=== PATIENT | male | born 1965 | race Caucasian/White ===

== ENCOUNTER → 2022-03-23 | Outpatient (CLI) | payer BC ==
[2022-03-23 11:14] LABS: HCT 41.5 % (39.6-50.0); HGB 13.7 g/dL (13.0-17.0); MCH 29.7 pg (27.0-32.0); MCV 89.8 fL (80.0-97.0); Mean Platelet Volume 9.8 fL (9.5-12.2); NRBC Per 100 WBC 0 /100 WBCS (0.0-0.0); Platelet Count 210 X 10*3/uL (140-440); RBC 4.62 X 10*6/uL (4.40-5.60); RDW 12.8 % (11.5-14.5)
[2022-03-23 12:02] LABS: ALT 15 U/L (10-49); AST 22 U/L (14-35); African American GFR (CKD) 77.9 (60.0-200.0); Albumin 4.1 g/dL (3.8-4.9); Albumin/Globulin Ratio 1.46 (1.60-3.17); Alkaline Phosphatase 72 U/L (41-126); BUN/Creat Ratio 17.33 Ratio (12.00-20.00); Blood Urea Nitrogen 20.8 mg/dL (9.0-27.0); Carbon Dioxide 24.4 mmol/L (20.0-27.5); Chloride 106 mmol/L (96-109); Chol/HDL Ratio 6.03 Ratio; Globulin 2.8 g/dL (1.6-3.3); Glucose 101 mg/dL (70-110); LDL Cholesterol,Calculated 168.6 mg/dL (0.0-131.0); Non-African American GFR(CKD) 67.2 (60.0-200.0); Potassium 4.6 mmol/L (3.5-5.5); Sodium 140 mmol/L (135-145); Total Protein 6.9 g/dL (6.2-8.2)
== END | disposition home or self-care (01) ==
LOC: LABWHC1 08:24
PROVIDERS: ATTEND Physician Assistant Medical
DX: Z12.5 Encounter for screening for malignant neoplasm of prostate (principal); F32.A Depression, unspecified; R73.01 Impaired fasting glucose; R53.83 Other fatigue
CPT/HCPCS: 36415; 80053; 80061; 83036; 84153; 84443; 85027

== ENCOUNTER 2022-06-12 09:28 | Emergency (ER) | payer BC, OTHER ==
[2022-06-12 09:36] VITALS: BP 157/94; PULSE 82; RESP 16; TEMP 98.4
--- NOTE | 2022-06-12 10:34 | ED ---
Fall HPI - General Chief Complaint: Fall Stated Complaint: [facility],Fell of ladder Time Seen by Provider: 06/12/22 09:58 Source: patient, family, RN notes reviewed Mode of arrival: ambulatory - History of Present Illness Initial Comments: This is a 57-year-old male who presents to the emergency department for a fall. Patient states that he was at work and he was coming off of a ladder, when he missed the last step and proceeded to fall. States that he scraped his left arm and when he fell, he landed on his lower back and right side. Currently complaining of pain to the lower back and right groin area. He took ibuprofen with mild relief, and states that he is able to ambulate. He is required to have evaluation per [facility] standards. He also wants to ensure that he did not hernandez stain any fractures. Denies hitting his head or any loss of consciousness. Denies any fevers, chills, sore throat, cough, dyspnea, chest pain, palpitations, abdominal pain, nausea, vomiting, diarrhea, or headaches. MD Complaint: fall Fall From: from height (distance) (8 feet) Place Fall Occurred: work Loss of Consciousness: none Symptoms Prior to Fall: none - Related Data Allergies Allergy/AdvReac Type Severity Reaction Status Date / Time No Known Allergies Allergy Verified 06/12/22 09:36 Review of Systems ROS Statement: Those systems with pertinent positive or pertinent negative responses have been documented in the HPI. ROS Other: All systems not noted in ROS Statement are negative. Past Medical History Past Medical History: No Reported History History of Any Multi-Drug Resistant Organisms: None Reported Past Surgical History: No Surgical Hx Reported Past Psychological History: Depression Smoking Status: Never smoker Past Alcohol Use History: None Reported Past Drug Use History: None Reported General Exam Limitations: no limitations General appearance: alert, in no apparent distress Head exam: Present: atraumatic, normocephalic, normal inspection Respiratory exam: Present: normal lung sounds bilaterally. Absent: respiratory distress, wheezes, rales, rhonchi, stridor Cardiovascular Exam: Present: regular rate, normal rhythm, normal heart sounds. Absent: systolic murmur, diastolic murmur, rubs, gallop, clicks Back exam: Present: normal inspection. Absent: tenderness, paraspinal tenderness, vertebral tenderness Neurological exam: Present: alert, oriented X3, CN II-XII intact Psychiatric exam: Present: normal affect, normal mood Skin exam: Present: warm, dry, normal color, abrasion (Over the left elbow and dorsal aspect of the left forearm. No active bleeding. ). Absent: rash Course Vital Signs 06/12/22 09:33 Temperature 98.4 F Pulse Rate 82 Respiratory 16 Rate Blood Pressure 157/94 O2 Sat by Pulse 98 Oximetry Medical Decision Making - Medical Decision Making This is a 57-year-old male who presents to the emergency department for lower back pain and right hip pain after a fall. X-rays of the right hip, lower back, and left arm were obtained. X-ray of the right hip could not rule out an acute avulsion injury, a computed tomography scan of the hip was subsequently obtained. This revealed that the avulsion injury was most likely related to an old injury. X-ray of the lumbar spine was also unable to rule out an acute L3 fracture. Computed tomography scan of the lumbar spine was also subsequently obtained. This revealed an L3 compression fracture. Patient given orthopedic follow-up with Dr. Dorman. Advised to take ibuprofen and Tylenol as needed for pain relief. Also advised he avoid excess bending or lifting or long periods of sitting. 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 Return precautions reviewed in depth, the patient is instructed to return to the emergency department with any new, worsening, or concerning symptoms. Patient verbalized understanding. This case was discussed in detail with the attending ED physician. Presentation, findings, and treatment plan discussed in detail as well. - Radiology Data Radiology results: report reviewed, image reviewed Disposition Clinical Impression: Compression fracture of L3 vertebra Disposition: HOME SELF-CARE Instructions (If sedation given, give patient instructions): Vertebral Compression Fracture (ED) Additional Instructions: Return to the emergency department with any new, worsening, or concerning symptoms, especially if you develop loss of bowel/bladder control or numbness in pelvis or extremities. Contact Dr. Dorman, orthopedics, for a follow-up appointment. Alternate with Tylenol and ibuprofen as needed for pain relief. You may also apply lidocaine patches if you find them helpful. Is patient prescribed a controlled substance at d/c from ED?: No Referrals: Sera Kendall DO [Primary Care Provider] - 1-2 days Sean Dorman DO [Doctor of Osteopathic Medicine] - 1-2 days
--- NOTE | 2022-06-12 11:06 | XR ---
EXAMINATION TYPE: XR lumbar spine 3 views DATE OF EXAM: 06/12/2022 Comparison: None Clinical History: 57-year-old male low back Pain after fall Findings: 5 lumbar type vertebral bodies. Facet arthropathy mid to lower lumbar spine. Mild multilevel degenera tive disc disease. There is grade 1 retrolisthesis L2-L3 and L3-L4. There is some cortical irregulari ty of the superior endplate and anterior vertebral cortex of L3. Unable to exclude subtle vertebral b katie fracture here. Impression: 1. Correlate for point tenderness at the L3 level. Unable to exclude a subtle vertebral body fracture of the superior endplate and anterior cortex. 2. Mild multilevel degenerative disc disease. Facet arthropathy and degenerative trace grade 1 retrol isthesis L2-L3 and L3-L4.
--- NOTE | 2022-06-12 11:07 | XR ---
EXAMINATION TYPE: XR femur RT DATE OF EXAM: 06/12/2022 COMPARISON: None HISTORY: Pain after fall from ladder TECHNIQUE: 2 view right femur FINDINGS: Femoral head articulates with the acetabulum. There is a tiny ossification along the plastics and composites inspector ior superior acetabulum. Tiny avulsion is not entirely excluded. No additional areas suspicious for fracture are evident. Knee joint space is mild degenerative change . Follow-up can be performed as clinically indicated. IMPRESSION: 1. Degenerative spurring versus tiny avulsion superior acetabulum. 2. No additional fractures evident right femur.
--- NOTE | 2022-06-12 11:09 | XR ---
EXAMINATION TYPE: XR elbow complete 3 views LT, XR forearm 2 views LT DATE OF EXAM: 06/12/2022 COMPARISON: NONE HISTORY: 57-year-old male pain after fall from ladder FINDINGS: Left elbow: There is some degenerative spurring at the ulnotrochlear joint. No acute fracture, subluxation, or di slocation. No elbow joint effusion. Left forearm: Some degenerative spurring at the distal radial ulnar joint. No acute fracture of the radius or ulna. Wrist articulation appears grossly intact. There is mild to moderate degenerative change at the firs t CMC and triscaphe joints. IMPRESSION: 1. Left elbow: Mild degenerative spurring. No acute osseous abnormality seen. 2. Left forearm: No acute osseous abnormality seen. Some osteoarthritic change at the base of the ashwini mb and distal radioulnar joint.
--- NOTE | 2022-06-12 11:13 | XR ---
EXAMINATION TYPE: XR Hip Complete RT DATE OF EXAM: 06/12/2022 COMPARISON: None HISTORY: Fall, pain TECHNIQUE: 2 view right hip FINDINGS: Tiny ossification adjacent to the acetabulum is again evident. Correlate with location of p atient's pain. Tiny avulsion could be considered. No additional fractures are evident. Proximal Femur appears intact. IMPRESSION: 1. Tiny ossification adjacent to the acetabulum could be a small avulsion. This could be chronic spu rring. Correlate with location of patient's pain. 2. No additional areas suspicious for fracture evident. 3. Follow up exams can be performed as clinically indicated.
--- NOTE | 2022-06-12 12:02 | CT ---
EXAMINATION TYPE: CT hip RT wo con DATE OF EXAM: 06/12/2022 COMPARISON: Right hip right femur 06/12/2022 plain films HISTORY: low back and right hip pain following fall from ladder. CT DLP: 608.1 mGycm Automated exposure control for dose reduction was used. Contrast: None Technique: Axial images 3 mm thick sections. Reconstructed images in the coronal and sagittal planes. 3-D reconstructed images were performed FINDINGS: Spurring is evident extending from the posterior acetabulum. This has smooth cortical margins. Additi onal punctate density with smooth margins adjacent to the superior acetabulum. This area corresponds to the plain film findings. This appears old and related to degenerative change or old avulsion. An a cute fracture is not identified. The femoral head articular joint space. Mild diffuse joint space gracie rowing may be present. Some femoral head spurring is noted. IMPRESSION: 1. NO ACUTE OSSEOUS ABNORMALITY. 2. OLD AVULSION OR DEGENERATIVE SPURRING AT THE ACETABULUM. 3. MILD TO MODERATE DEGENERATIVE CHANGES RIGHT HIP.
--- NOTE | 2022-06-12 12:09 | CT ---
EXAMINATION TYPE: CT lumbar spine wo con DATE OF EXAM: 06/12/2022 COMPARISON: None HISTORY: low back and right hip pain following fall from ladder. CT DLP: 996.8 mGycm Automated exposure control for dose reduction was used. Contrast: None Technique: Serial images 3 mm thick sections. Reconstructed images in the coronal plane. FINDINGS: There is a compression deformity superior endplate of L3. This appears acute. There is mild disc bulging with some minimal posterior endplate spurring present at L1-. No stenosis is present. Posterior disc space narrowing is present L2-3. This is mild anterior thecal sac compress ion. No posterior wall displacement at this level is evident. The acute superior endplate fracture of L3 is evident. Broad-based disc bulge is present L3-4 with mild anterior thecal sac compression. Lig amentum flavum laxity is present. No spinal canal or neural foraminal stenosis is present. Minimal di sc bulge is present L4-5 without spinal canal stenosis. Facet hypertrophy is present. IMPRESSION: 1. SUPERIOR ENDPLATE COMPRESSION FRACTURE WITH MINIMAL LOSS OF VERTEBRAL BODY HEIGHT AT L3. 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 2. MILD DISC BULGES WITH ANTERIOR THECAL SAC CONTACT DISCUSSED ABOVE. NO STENOSIS IS EVIDENT.
== END 2022-06-12 13:02 | disposition home or self-care (01) ==
LOC: EC 09:28
DX: S32.030A Wedge compression fracture of third lumbar vertebra, initial encounter for closed fracture (principal); W11.XXXA Fall on and from ladder, initial encounter; Y93.89 Activity, other specified; Y92.89 Other specified places as the place of occurrence of the external cause
CPT/HCPCS: 72100; 72131; 73502; 99284